=== PATIENT | female | born 1985 | race Caucasian/White ===

== ENCOUNTER 2020-07-18 08:09 | Emergency (ER) | payer SELFPAY ==
--- OUTSIDE RECORDS SUMMARY | 2020-07-18 08:11 | XMS REPORT | Continuity of Care Document ---
:1985 Author Organization [facility] t Address [address] [place]. [address] [place] [id number] Care Team Providers Name Role Phone DR GENA Attending Clinician Unavailable DR GENA Admitting Clinician Unavailable Problems This patient has no known problems. Allergies, Adverse Reactions, Alerts This patient has no known allergies or adverse reactions. Medications This patient has no known medications. Procedures This patient has no known procedures. Encounters Start End Encounter Admission Attending Care Care Encounter Source Date/Time Date/Time Type Type Clinicians Facility Department ID 2018-05-28 2018-05-28 Emergency E [facility] [id number] [facility] 12:22:00 12:42:00 [facility] Results This patient has no known results.
--- NOTE | 2020-07-18 09:30 | EDPHYS ---
Physician Documentation [facility] Name: Carlos Bernal Age: 34 yrs Sex: Female : 1985 Arrival Date: 07/18/2020 Time: 08:13 Bed 20 Private MD: ED Physician Bushra Tran HPI: 07/18 09:23 This 34 yrs old Female presents to ER via Ambulatory with complaints of kb Abscess. 09:23 The patient presents with an abscess of the hard palate. Description: erythematous, kb swollen. Onset: The symptoms/episode began/occurred 5 day(s) ago. Possible cause(s): unknown. Associated signs and symptoms: Pertinent positives: drainage, erythema, swelling. Modifying factors: the symptoms are alleviated by nothing, the symptoms are aggravated by touching. Severity of symptoms: At their worst the symptoms were moderate, in the emergency department the symptoms are unchanged. The patient has not experienced similar symptoms in the past. The patient has not recently seen a physician. pt reports abscess in mouth that started 5 days ago. Reports pain radiates to left ear. Pt states she does not want it lanced open, just came for antibiotics. . Historical: - Allergies: 08:19 No Known Allergies; sv - Immunization history:: Client reports receiving the 1st dose of the Covid vaccine. - Social history:: Smoking status: Patient reports the use of cigarette tobacco products, smokes one-half pack cigarettes per day. ROS: 09:23 Constitutional: Negative for fever, chills, and weight loss, Respiratory: Negative for kb shortness of breath, cough, wheezing, and pleuritic chest pain, Abdomen/GI: Negative for abdominal pain, nausea, vomiting, diarrhea, and constipation, Skin: Negative for injury, rash, and discoloration, Neuro: Negative for headache, weakness, numbness, tingling, and seizure. 09:23 ENT: Positive for ear pain, Teeth pain abscess in mouth. Exam: :23 Constitutional: This is a well developed, well nourished patient who is awake, alert, kb and in no acute distress. Head/Face: Normocephalic, atraumatic. Respiratory: Respirations even and unlabored. No increased work of breathing, no retractions or nasal flaring. Skin: Warm, dry with normal turgor. Normal color. MS/ Extremity: Pulses equal, no cyanosis. Neurovascular intact. Full, normal range of motion. Neuro: Awake and alert, GCS 15, oriented to person, place, time, and situation. Moves all extremities. Normal gait. Psych: Awake, alert, with orientation to person, place and time. Behavior, mood, and affect are within normal limits. 09:23 ENT: External ear(s): are unremarkable, Ear canal(s): are normal, TM's: are normal, Mouth: abscess, that is minimal, that is moderate, of the hard palate. Vital Signs: 08:19 BP 115 / 77; Pulse 74; Resp 18; Temp 97.5(A); Pulse Ox 99% ; Weight 68.04 kg; Height 4 sv ft. 11 in. (149.86 cm); 09:30 BP 121 / 78; Pulse 76; Resp 18; Temp 97.5; Pulse Ox 99% ; bp 08:19 Body Mass Index 30.30 (68.04 kg, 149.86 cm) sv MDM: 09:09 Patient medically screened. kb 09:28 Data reviewed: vital signs, nurses notes. Data interpreted: Pulse oximetry: on room air kb is 99 %. Interpretation: normal. Counseling: I had a detailed discussion with the patient and/or guardian regarding: the historical points, exam findings, and any diagnostic results supporting the discharge/admit diagnosis, the need for outpatient follow up, a dentist, to return to the emergency department if symptoms worsen or persist or if there are any questions or concerns that arise at home. ED course: abscess has opening that is draining. Pt does not want I\T\D at this time. Pt educated to follow up with dentist as soon as possible for further treatment. . Administered Medications: 09:45 Drug: Augmentin (Amoxicillin-Clavulanate) 875 mg Route: PO; bp 09:56 Follow up: Response: No adverse reaction bp 09:45 Drug: Ibuprofen 800 mg Route: PO; bp 09:56 Follow up: Response: No adverse reaction bp Disposition: 18:39 Co-signature as Attending Physician, Bushra Tran MD. ma2 Disposition: 07/18/20 09:30 Discharged to Home. Impression: Cellulitis and abscess of mouth. - Condition is Stable. - Discharge Instructions: Dental Abscess, [id number]. - Prescriptions for Augmentin 875- 125 mg Oral Tablet - take 1 tablet by ORAL route every 12 hours for 10 days; 20 tablet. Ibuprofen 800 mg Oral Tablet - take 1 tablet by ORAL route every 8 hours As needed take with food; 30 tablet. - Medication Reconciliation Form, Thank You Letter, Antibiotic Education, Prescription Opioid Use form. - Follow up: Emergency Department; When: As needed; Reason: Worsening of condition. Follow up: Private Physician; When: 2 - 3 days; Reason: Recheck today's complaints, Continuance of care, Re-evaluation by your physician. Signatures: Mone Martinez FNP-Gisselle SORENSON-Laura Sunshine RN RN Jose Luis Adkins RN RN Bushra Menendez MD MD ma2 Corrections: (The following items were deleted from the chart) 09:59 09:30 07/18/2020 09:30 Discharged to Home. Impression: Cellulitis and abscess of mouth. bp Condition is Stable. Forms are Medication Reconciliation Form, Thank You Letter, Antibiotic Education, Prescription Opioid Use. Follow up: Emergency Department; When: As needed; Reason: Worsening of condition. Follow up: Private Physician; When: 2 - 3 days; Reason: Recheck today's complaints, Continuance of care, Re-evaluation by your physician. kb
--- NOTE | 2020-07-18 09:30 | ER ---
Nurse's Notes [facility] Name: Carlos Bernal Age: 34 yrs Sex: Female : 1985 Arrival Date: 07/18/2020 Time: 08:13 Bed 20 Private MD: Diagnosis: Cellulitis and abscess of mouth Presentation: 07/18 08:18 Chief complaint: Patient states: mouth abscess and left ear pain x 5 days. Coronavirus sv screen: Client denies travel out of the [place] in the last 14 days. At this time, the client does not indicate any symptoms associated with coronavirus-19. Ebola Screen: No symptoms or risks identified at this time. Risk Assessment: Do you want to hurt yourself or someone else? Patient reports no desire to harm self or others. Onset of symptoms was July 13, 2020. 08:18 Method Of Arrival: Ambulatory sv 08:18 Acuity: MARY 4 sv 08:19 Initial Sepsis Screen: Does the patient meet any 2 criteria? No. Patient's initial sv sepsis screen is negative. Does the patient have a suspected source of infection? No. Patient's initial sepsis screen is negative. Triage Assessment: 08:25 General: Appears distressed, uncomfortable, Behavior is cooperative, appropriate for bp age, anxious. Pain: Complains of pain in left ear and mouth. EENT: Reports LEFT DENTAL PAIN. Neuro: No deficits noted. Cardiovascular: No deficits noted. Respiratory: No deficits noted. GI: No signs and/or symptoms were reported involving the gastrointestinal system. : No signs and/or symptoms were reported regarding the genitourinary system. Derm: No deficits noted. Musculoskeletal: No deficits noted. Historical: - Allergies: 08:19 No Known Allergies; sv - Immunization history:: Client reports receiving the 1st dose of the Covid vaccine. - Social history:: Smoking status: Patient reports the use of cigarette tobacco products, smokes one-half pack cigarettes per day. Screenin:27 Abuse screen: Denies threats or abuse. Denies injuries from another. Nutritional bp screening: No deficits noted. Tuberculosis screening: No symptoms or risk factors identified. Fall Risk None identified. Assessment: 08:27 General: SEE TRIAGE NOTE. bp 09:57 Reassessment: PT D/C HOME AMBULATORY, DX WITH DENTAL ABSCESS. bp Vital Signs: 08:19 BP 115 / 77; Pulse 74; Resp 18; Temp 97.5(A); Pulse Ox 99% ; Weight 68.04 kg; Height 4 sv ft. 11 in. (149.86 cm); 09:30 BP 121 / 78; Pulse 76; Resp 18; Temp 97.5; Pulse Ox 99% ; bp 08:19 Body Mass Index 30.30 (68.04 kg, 149.86 cm) sv ED Course: 08:13 Patient arrived in ED. mr 08:18 Arm band placed on. sv 08:19 Triage completed. sv 08:25 Jose Luis Thomas, RN is Primary Nurse. bp 08:27 Patient has correct armband on for positive identification. Bed in low position. Call bp light in reach. Side rails up X2. 09:09 Mone Martinez FNP-C is [facility]. kb 09:09 Mathew Clemente MD is Attending Physician. kb 09:09 Bushra Tran MD is Attending Physician. kb 09:57 No provider procedures requiring assistance completed. Patient did not have IV access bp during this emergency room visit. Administered Medications: 09:45 Drug: Augmentin (Amoxicillin-Clavulanate) 875 mg Route: PO; bp 09:56 Follow up: Response: No adverse reaction bp 09:45 Drug: Ibuprofen 800 mg Route: PO; bp 09:56 Follow up: Response: No adverse reaction bp Outcome: 09:30 Discharge ordered by MD. kb 09:57 Discharged to home ambulatory. bp 09:57 Condition: stable 09:57 Discharge instructions given to patient, Instructed on discharge instructions, follow up and referral plans. medication usage, Demonstrated understanding of instructions, follow-up care, medications, Prescriptions given X 2. 09:59 Patient left the ED. bp Signatures: Mone Martinez FNP-C FNP-Ckb Verde, Stephanie, RN RN Shilpi Ware mr Jose Luis Thomas, RN RN bp
[2020-07-18] MEDS ORDERED: AMOX/K CLAV 875 MG TAB ONE (09:57)
[2020-07-18] MEDS ORDERED: IBUPROFEN 400 MG TAB ONE (09:57)
[2020-07-18 10:06] VITALS: TEMP 97.5; O2SAT 99
[2020-07-18 10:08] VITALS: BP 121/78
== END 2020-07-18 09:59 | disposition home or self-care (01) ==
LOC: ER 08:09
DX: K12.2 Cellulitis and abscess of mouth (principal); F17.210 Nicotine dependence, cigarettes, uncomplicated
CPT/HCPCS: 99283